=== PATIENT | female | born 1945 | race Caucasian/White ===

== ENCOUNTER 2016-05-30 18:42 | Emergency (ER) | payer OTHER ==
--- NOTE | 2016-05-30 18:49 | ED GENERAL ADULT ---
See Addendum History of Present Illness General Chief Complaint: Altered Mental Status Stated Complaint: JESUS CASTILLO Source: EMS Exam Limitations: not alert/orientated, clinical condition, confusion Vital Signs & Intake/Output Vital Signs & Intake/Output Vital Signs Date Time Temp Pulse Resp B/P Pulse O2 O2 Flow FiO2 Ox Delivery Rate 05/30 1950 75 18 160/100 98 Ventilator 05/30 1941 100 05/30 1937 260/160 05/31 1931 96.2 115 18 260/160 98 Ventilator 05/31 1903 101 22 165/84 99 Non 100% ReBreather 05/30 1899 Non 100% ReBreather ED Intake and Output 05/31 0000 05/30 1200 Intake Total 300 Output Total 100 Balance 200 Intake, IV 300 Output, Urine 100 Allergies Coded Allergies: No Known Allergies (05/30/16) Triage Nurses Notes Reviewed? yes Onset: Abrupt Duration: hour(s): Timing: recent history HPI: 05/30/16 This is a 70-year-old female who presents to the emergency department for altered mental status. According to EMS the patient was in her usual state of health until one hour prior to admission when after having a conversation with her she became unresponsive. In the emergency department she was exhibiting decorticate posturing. She was confused with purposeless movements. CT scan revealed an intracranial bleed with midline shift. The patient was having gurgling respirations and so she was intubated using 20 mg of etomidate, 100 mg of succinylcholine. She was intubated immediately with the Adi vision size 7.5 endotracheal tube. End tidal CO2 color change was exhibited and she had bilateral breath sounds. Her manual blood pressure upon return to the ED was systolic of 260/114. The patient was given IV labetalol. I spoke to the on-call neurosurgeon Dr. Garcia, he agreed with the plan to transfer her to [facility]. I also spoke to the receiving neurosurgeon at [facility] Dr. Rucker who accepted the patient to the [facility] emergency department and we discussd the POC. Past History Medical History Any Pertinent Medical History? see below for history Surgical History Surgical History: unkown Family History Hx Contributory? No Review of Systems Review of Systems Constitutional: Reports: no symptoms. EENTM: Reports: no symptoms. Respiratory: Reports: no symptoms. Cardiovascular: Reports: no symptoms. GI: Reports: no symptoms. Genitourinary: Reports: no symptoms. Musculoskeletal: Reports: no symptoms. Skin: Reports: no symptoms. Neurological/Psychological: Reports: confusion. Hematologic/Endocrine: Reports: no symptoms. Physical Exam Physical Exam General Appearance: severe distress Head: atraumatic Eyes: Bilateral: other (miotic). Ears, Nose, Throat: small mouth Neck: supple Respiratory: decreased breath sounds, respiratory distress Cardiovascular: regular rate/rhythm Peripheral Pulses: 4+ radial (R), 4+ radial (L) Gastrointestinal: non-tender Back: decreased range of motion Extremities: no edema Neurologic/Psych: confused, cortical posturing Skin: intact, normal color, warm/dry Comments: 05/30/16 7:39 pm I spoke to Dr. Rucker at [facility] who accepted the patient. She was treated with IV Keppra, IV labetalol, 20 mg of etomidate, 100 mg of succinylcholine, 10 mg of vecuronium. Core Measures ACS in differential dx? No CVA/TIA Diagnosis: Yes NIH Stroke Scale: Total 7 Dt/Tm Last Known Well: Yes Date Last Known Well: 05/30/16 Time Last Known Well: 1700 Neurological S/S of CVA: Acute Confusion, Difficulty Speaking, Muscle Weakness Symptom start date: 05/30/16 Symptom start time: 1700 Reason tPA not ordered: Medical Contraindication (ICB) Severe Sepsis Present: No Septic Shock Present: No Progress Differential Diagnoses I considered the following diagnoses in my evaluation of the patient: [ Intracranial bleed, CVA, subarachnoid hemorrhage, epidural hematoma, subdural hematoma] Plan of Care: Orders Procedure Date/time Status VENTILATOR PARAMETERS 05/31 1919 Complete Jorgensen, Insertion/Removal/Asses 05/30 1904 Active CULTURE,URINE 05/30 1904 Active PROTHROMBIN TIME 05/30 1852 Complete COMPREHENSIVE METABOLIC PANEL 05/30 1852 Complete CBC WITHOUT DIFFERENTIAL 05/30 1852 Complete EKG 05/30 1852 Active Laboratory Tests 05/30/161903: Anion Gap 16, Estimated GFR > 60, BUN/Creatinine Ratio 15.6, Glucose 117 H, Calcium 9.7, Total Bilirubin 0.7, AST 41 H, ALT 55 H, Alkaline Phosphatase 90, Total Protein 8.1, Albumin 4.7, Globulin 3.4, Albumin/Globulin Ratio 1.4, PT 11.8, INR 1.13, CBC w Diff NO MAN DIFF REQ, RBC 4.64, MCV 94.4, MCH 31.3 H, RDW 13.4, MPV 9.4, Gran % 46.6, Lymphocytes % 37.6, Monocytes % 11.7 H, Eosinophils % 3.5, Basophils % 0.6, Absolute Granulocytes 3.7, Absolute Lymphocytes 3.0, Absolute Monocytes 0.9 H, Absolute Eosinophils 0.3, Absolute Basophils 0, PUBS MCHC 33.1 Microbiology 05/31 1915 URINE ROUT: Urine Culture - RECD Initial ED EKG: NSR Departure Departure Disposition: OTHER [facility] ([facility]) Condition: Stable Clinical Impression Primary Impression: Intracranial bleed Secondary Impressions: Hypertensive urgency, Respiratory failure Departure Forms: Customer Survey General Discharge Information Comments PATIENT: KYLE MOY PRESENT AGE: 70 PATIENT ACCOUNT NO: [id number] : 43 LOCATION: [facility] ORDERING PHYSICIAN: FERDINAND ARANDA DO SERVICE DATE: 05/30/16 EXAM TYPE: CAT - CT HEAD WO IV CONTRAST EXAMINATION: CT HEAD WITHOUT CONTRAST CLINICAL INFORMATION: Unresponsiveness. Altered mental status. COMPARISON: None. TECHNIQUE: Contiguous axial images of the brain were obtained without IV contrast. DLP: 601 mGy-cm. FINDINGS: There are no pathologic extra-axial fluid collections. There are bilateral thalamic hemorrhages, right greater than left with mild adjacent edema. The hemorrhage on the right measures 3.2 cm in greatest dimension. That on the left measures approximately 1.5 cm. There is mild periventricular low-attenuation present. The lateral ventricles are mildly prominent, but concordant with the patient's age. Neither coronal or sagittal reconstructions were performed. While not confirmed, I suspect that there is extension of the hemorrhage on the right into the right lateral ventricle. Secondary to the hemorrhage on the right, there is equivocal shift of midline structures to the left by approximately 1 to 2 mm. There is left greater than right bilateral maxillary sinus mucosal thickening. There is also mild ethmoid sinus mucosal thickening. The paranasal sinuses and mastoid air cells are otherwise clear. There are no osseous lesions. IMPRESSION: Bilateral thalamic hemorrhages with mild adjacent edema. There is suspicion of extension of the right sided hemorrhage into the right lateral ventricle, though there is no ependymal thickening. There is quite mild shift of midline structures to the left secondary to the larger right-sided hemorrhage. The aforementioned was communicated to Dr. Tomlinson at 1902 hours. DICTATED BY: CATARINA RESENDIZ MD DATE/TIME DICTATED:05/30/161854 ARMATURE BANDER:DYLAN DATE/TIME TRANSCRIBED:05/30/161854 CONFIDENTIAL, DO NOT COPY WITHOUT APPROPRIATE AUTHORIZATION. <Electronically signed in Other Vendor System> SIGNED BY: CATARINA RESENDIZ MD 05/30/161906 Chest x-ray endotracheal tube at ismael The patient's head was elevated. She was treated with IV Keppra, she was transferred here for further care. Critical Care Note Critical Care Note Critical Care Time: 75-104 min
--- NOTE | 2016-05-30 19:07 | CT SCAN REPORT ---
EXAMINATION: CT HEAD WITHOUT CONTRAST CLINICAL INFORMATION: Unresponsiveness. Altered mental status. COMPARISON: None. TECHNIQUE: Contiguous axial images of the brain were obtained without IV contrast. DLP: 601 mGy-cm. FINDINGS: There are no pathologic extra-axial fluid collections. There are bilateral thalamic hemorrhages, right greater than left with mild adjacent edema. The hemorrhage on the right measures 3.2 cm in greatest dimension. That on the left measures approximately 1.5 cm. There is mild periventricular low-attenuation present. The lateral ventricles are mildly prominent, but concordant with the patient's age. Neither coronal or sagittal reconstructions were performed. While not confirmed, I suspect that there is extension of the hemorrhage on the right into the right lateral ventricle. Secondary to the hemorrhage on the right, there is equivocal shift of midline structures to the left by approximately 1 to 2 mm. There is left greater than right bilateral maxillary sinus mucosal thickening. There is also mild ethmoid sinus mucosal thickening. The paranasal sinuses and mastoid air cells are otherwise clear. There are no osseous lesions. IMPRESSION: Bilateral thalamic hemorrhages with mild adjacent edema. There is suspicion of extension of the right sided hemorrhage into the right lateral ventricle, though there is no ependymal thickening. There is quite mild shift of midline structures to the left secondary to the larger right-sided hemorrhage. The aforementioned was communicated to Dr. Tomlinson at 1902 hours.
[2016-05-30 19:16] LABS: ABSOLUTE BASOPHIL COUNT 0 /CUMM (0.0-0.2); ABSOLUTE EOSINOPHIL COUNT 0.3 /CUMM (0.0-0.7); ABSOLUTE GRANULOCYTE CT 3.7 /CUMM (1.4-6.5); ABSOLUTE MONOCYTE COUNT 0.9 /CUMM (0.10-0.60); BASOPHIL % 0.6 % (0.0-2.0); EOSINOPHIL % 3.5 % (0-5); GRANULOCYTE % 46.6 % (42.2-75.2); HEMATOCRIT 43.8 % (37-47); MEAN CORPUSCULAR HGB 31.3 PG (27.0-31.0); MEAN CORPUSCULAR HGB CONC 33.1 G/DL (33.0-37.0); MEAN CORPUSCULAR VOLUME 94.4 FL (81.0-99.0); MEAN PLATELET VOLUME 9.4 FL (7.4-10.4); PLATELET COUNT 259 /CUMM (130-400); RBC DISTRIBUTION WIDTH 13.4 % (11.5-14.5); RED BLOOD CELL CT 4.64 /CUMM (4.20-5.40)
[2016-05-30 19:19] LABS: PT 11.8 SEC (9.4-12.5)
[2016-05-30 19:50] VITALS: BP 160/100
--- NOTE | 2016-05-30 19:52 | RADIOLOGY REPORT ---
EXAMINATION: CHEST 1 VIEW CLINICAL INFORMATION: Intubated. COMPARISON: None. TECHNIQUE: An AP view of the chest is provided. FINDINGS: The cardiac silhouette is not enlarged. An endotracheal tube is in place. The tip is near the ismael. The mediastinal and hilar contours are unremarkable. There are neither pleural effusions nor pneumothoraces. There are no consolidations. The osseous structures are unremarkable. IMPRESSION: Endotracheal tube in place. Tip at the ismael. No demonstrable airspace disease.
== END 2016-05-30 20:08 | disposition short-term general hospital (02) ==
LOC: ERH 18:42 → EDBD 18:42 → ERH 19:10
PROVIDERS: Emergency Medicine
DX: I62.9 Nontraumatic intracranial hemorrhage, unspecified (principal); I16.0 Hypertensive urgency; J96.90 Respiratory failure, unspecified, unspecified whether with hypoxia or hypercapnia
CPT/HCPCS: 87086; 93005; 93010; 96374; 96375; 99291; J1953